=== PATIENT | male | born 2005 | race Caucasian/White ===

== ENCOUNTER 2023-05-10 15:03 | Emergency (ER) | payer OTHER ==
[~2023-05-10] VITALS: Ht 180.3 cm; Wt 79.0 kg
[2023-05-10 15:07] VITALS: O2SAT 99
[2023-05-10 16:03] LABS: CLARITY URINE TURBID (CLEAR); COLOR URINE YELLOW (YELLOW); GLUCOSE URINE NEGATIVE (NEGATIVE); KETONES URINE NEGATIVE (NEGATIVE); LEUKOCYTE ESTERASE URINE NEGATIVE (NEGATIVE); NITRITE URINE NEGATIVE (NEGATIVE); OCCULT BLOOD URINE NEGATIVE (NEGATIVE); PROTEIN URINE NEGATIVE (NEGATIVE)
[2023-05-10 16:25] LABS: BACTERIA URINE 3+; RBC URINE 0-2 /hpf (0-2); SQUAMOUS EPITHELIAL CELL URINE FEW /lpf (RARE/1+); WBC URINE 0-2 /hpf (0-2)
[2023-05-10 16:26] LABS: AMORPHOUS SEDIMENT URINE 2+ /lpf
[2023-05-10] MEDS ORDERED: IBUPROFEN 600MG TABLET PO NR (17:41)
[2023-05-10] MEDS ORDERED: NAPR-681 MT (18:58)
[2023-05-10 19:08] VITALS: BP 121/78; PULSE 77; RESP 20; TEMP 97.9
== END 2023-05-10 19:09 | disposition home or self-care (01) ==
LOC: ER 15:20
DX: M54.50 Low back pain, unspecified (principal)
CPT/HCPCS: 81003; 99283